=== PATIENT | male | born 1955 | race Caucasian/White ===

== ENCOUNTER 2024-03-03 20:05 | Emergency (ER) | payer MEDICARE, SELFPAY ==
[2024-03-03 20:31] VITALS: BP 149/85; PULSE 66; RESP 18; TEMP 36.9; O2SAT 99; BMI 22.6
--- NOTE | 2024-03-03 20:31 | ED.GENADULT ---
HPI - General Adult General Chief complaint: Nausea/Vomiting/Diarrhea Stated complaint: liver prob, threw up, seen by [facility] recently Time Seen by Provider: 03/04/24 00:43 Source: patient and family Mode of arrival: ambulatory Limitations: no limitations History of Present Illness ED Provider: Dr. Devlin HPI narrative: patient with a long history of chrohns with bowel resection, states that 4 weeks ago he ate boars head and since then he has had diarrhea and nausea. He has been on 1 week of augmentin that was stopped 10 days ago but he is still not feeling well. Patient comes in tonight because he is lightheaded and had some nausea Onset (ago): week(s) Related Data Allergies Allergy/AdvReac Type Severity Reaction Status Date / Time azithromycin Allergy Unknown Verified 03/03/24 20:31 Review of Systems Review of Systems: Yes all other systems are reviewed and are negative Neurologic: Denies Sensory deficit (Neuro) [facility] Social History Social History Do you have a plan to hurt others: No Plan Physical Exam ED Vital Signs: Vital Signs - 24 hr 03/03/24 20:31 03/04/24 01:04 Temperature 98.4 F 98 F Pulse Rate 66 67 Respiratory Rate 18 16 Blood Pressure 149/85 H 168/76 H Pulse Oximetry 99 98 Oxygen Delivery Method Room Air Room Air BMI result Body Mass Index 22.6 Const Other: Male with pallor Nutritional Appearance: average body habitus Orientation/consciousness: oriented to person and patient oriented x3 Limitations: no limitations HENMT Head: Yes normal to inspection Ears: external ears normal General nose exam: Normal external nose present Mouth: Normal oral and palatal mucosa present and oropharynx normal Throat: Yes posterior oropharynx normal Eyes General: appearance normal, both eyes and all related structures Neck Neck: Yes normal visual inspection Chest Chest palpation & inspection: normal inspection of the chest Resp Auscultation: clear to auscultation bilaterally Cardio Jugular venous distension: no JVD Rate: regular rate Rhythm: regular rhythm Heart sounds: S1 normal heart sound present and S2 normal heart sound present GI Inspection: Yes normal to inspection Palpation (GI): Soft to palpation, nontender and No hepatosplenomegaly present Auscultation: normal bowel sounds General: Yes no CVA tenderness Back/Spine/Pelvis Back: no CVA tenderness Skin General skin exam: no rashes or lesions noted Neuro General: oriented to person and patient oriented x3 Cranial nerves: Yes CN's II-XII intact bilaterally Motor exam (neuro): 5/5 motor strength present throughout Sensory Exam: No Sensory deficit (Neuro) Extrem General: Yes normal to inspection Psych Appearance: grossly normal Course Course Course Narrative: This is a Rapid Medical Exam performed in triage by Radha Patel PA-C. Full HPI, ROS and PE to be performed by primary ED provider. 68 year-old M w/ PMHx Chron's dz, ?Listeria tx with Augmentin by Richie, presenting to the ED c/o abdominal pain, N/V, chronic diarrhea. denies bloody stools. denies travel, fever, urinary sx PE: pale, +mild scleral icterus, abdomen soft & nontender Plan: labs, UA Reevaluation(s) Reevaluation #1: Patient with normal labs, no liver failure soft abdomen. He was satisfied that he does not need a further work up and is satisfied that his labs are normal Time: 01:12 Medical Decision Making Differential Diagnosis Differential Diagnoses: The differential diagnosis associated with the presentation includes (enteritis, chrohns disease, GI bleed, dehydration, renal failure) Admission/Observation Consideration of admission/observation: Escalation of care including admission/observation considered (upon arrival patient was considered for admission) Lab Data 03/03/24 20:43 03/03/24 20:43 Labs: Lab Results 03/03/24 Range/Units 20:43 WBC 10.1 (4.8-10.8) X10*3/uL RBC 4.95 (4.60-5.80) X10*6/uL Hgb 14.3 (14.0-18.0) g/dl Hct 39.9 L (42.0-52.0) % MCV 80.6 (80.0-98.0) fL MCH 28.9 (27.0-33.0) pg MCHC 35.8 (31.0-36.0) g/dl RDW 13.3 (11.0-16.0) % Plt Count 230 (160-400) X10*3/uL MPV 9.7 (9.4-12.4) fL Immature Gran % (Auto) 0.5 H (0.0-0.4) % Neut % (Auto) 75.4 H (45-73) % Lymph % (Auto) 12.9 L (20-40) % Lamoure % (Auto) 9.3 (2-11) % Eos % (Auto) 1.2 (0-4) % Baso % (Auto) 0.7 (0-2) % Lymph # (Auto) 1.3 (1.2-4.9) X10*3/uL [place] # (Auto) 0.9 (0.1-1.2) X10*3/uL Eos # (Auto) 0.1 (0.0-0.4) X10*3/uL Baso # (Auto) 0.1 (0.0-0.2) X10*3/uL Abs Immat Gran (auto) 0.05 H (0.00-0.03) X10*3/uL Absolute Neuts (auto) 7.6 (2.0-8.3) x10*3/uL Absolute Nucleated RBC 0.000 (0.0-0.012) X10*3/uL Nucleated RBC % (auto) 0.0 (0.0-0.2) /100WBC PT 11.6 (11.1-13.3) SEC INR 1.0 (0.9-1.1) Sodium 140 (135-145) mmol/L Potassium 3.3 (3.3-5.1) mmol/L Chloride 108 (96-108) mmol/L Carbon Dioxide 22 (22-29) mmol/L Anion Gap 13 (12-20) BUN 15 (9-16) mg/dL Creatinine 1.25 (0.5-1.4) mg/dL Estim Creat Clear Calc 56.2 Estimated GFR 58 Random Glucose 113 (60-115) mg/dL Calcium 9.6 (8.4-10.2) mg/dL Magnesium 1.8 (1.6-2.6) mg/dL Total Bilirubin 0.8 (0.0-1.0) mg/dL Direct Bilirubin 0.3 (0.0-0.5) mg/dL AST 35 (5-37) U/L ALT 68 H (0-40) U/L Alkaline Phosphatase 102 (39-117) U/L Total Protein 6.8 (6.5-8.0) g/dL Albumin 4.3 (3.5-5.0) g/dL Lipase 33 (8-78) U/L Ethyl Alcohol < 10 mg/dL Independent Interpretation I performed an independent interpretation of an: EKG (sinus [address] or twave changes) Independent Historian Clinical information obtained from an independent historian. History obtained from or confirmed by: Spouse Prescription Management I considered prescription management with: Antibiotic (no evidence of continued bacterial infection) Chronic Conditions Patient?s care impacted by: Other (Crohn's disease) Discharge Plan Discharge Clinical Impression: Crohn's disease Patient Disposition: Home, Self-Care Instructions: Crohn Disease (ED) Referrals: Physician,Unknown J [Primary Care Provider] - 5 days
--- NOTE | 2024-03-03 20:39 | ECG_ITS ---
Test Reason : nausea Blood Pressure : / mmHG Vent. Rate : 059 BPM Atrial Rate : 059 BPM P-R Int : 140 ms QRS Dur : 088 ms QT Int : 420 ms P-R-T Axes : 072 -21 063 degrees QTc Int : 415 ms Sinus bradycardia Otherwise normal ECG No previous ECGs available Referred By: Radha Patel Electronically Signed By:MARLA RATLIFF MD
[2024-03-03 20:49] LABS: Basophils Absolute Auto 0.1 X10*3/uL (0.0-0.2); Basophils Percent Auto 0.7 % (0-2); Eosinophils Absolute Auto 0.1 X10*3/uL (0.0-0.4); Eosinophils Percent Auto 1.2 % (0-4); Hematocrit 39.9 % (42.0-52.0); Hemoglobin 14.3 g/dl (14.0-18.0); Imm Gran Abs Auto 0.05 X10*3/uL (0.00-0.03); Imm Gran Pct Auto 0.5 % (0.0-0.4); Lymphocytes Absolute Auto 1.3 X10*3/uL (1.2-4.9); Lymphocytes Percent Auto 12.9 % (20-40); MANUAL DIFF FLAG NO; Mean Corpuscular HGB Conc 35.8 g/dl (31.0-36.0); Mean Corpuscular Hemoglobin 28.9 pg (27.0-33.0); Mean Corpuscular Volume 80.6 fL (80.0-98.0); Mean Platelet Volume 9.7 fL (9.4-12.4); Monocytes Absolute Auto 0.9 X10*3/uL (0.1-1.2); Monocytes Percent Auto 9.3 % (2-11); Neutrophils Absolute Auto 7.6 x10*3/uL (2.0-8.3); Neutrophils Percent Auto 75.4 % (45-73); Platelet Count 230 X10*3/uL (160-400); Red Blood Count 4.95 X10*6/uL (4.60-5.80); Red Cell Distribution Width 13.3 % (11.0-16.0); White Blood Count 10.1 X10*3/uL (4.8-10.8)
[2024-03-03 20:58] LABS: Prothrombin Time 11.6 SEC (11.1-13.3)
[2024-03-03 21:03] LABS: Alanine Aminotransferase 68 U/L (0-40); Albumin Level 4.3 g/dL (3.5-5.0); Alkaline Phosphatase 102 U/L (39-117); Anion Gap 13 (12-20); Aspartate Amino Transferase 35 U/L (5-37); Bilirubin Direct 0.3 mg/dL (0.0-0.5); Bilirubin Total 0.8 mg/dL (0.0-1.0); Blood Urea Nitrogen 15 mg/dL (9-16); Calcium 9.6 mg/dL (8.4-10.2); Carbon Dioxide 22 mmol/L (22-29); Chloride 108 mmol/L (96-108); Creatinine Clr Calc Pharmacy 56.2; Estimated Glomerular Filt Rate 58; Ethanol < 10 mg/dL; Glucose Random 113 mg/dL (60-115); Lipase 33 U/L (8-78); Magnesium 1.8 mg/dL (1.6-2.6); Potassium 3.3 mmol/L (3.3-5.1); Sodium 140 mmol/L (135-145); Total Protein 6.8 g/dL (6.5-8.0)
[2024-03-04 01:04] VITALS: BP 168/76; PULSE 67; RESP 16; TEMP 36.6; O2SAT 98
--- OUTSIDE RECORDS SUMMARY | 2024-03-04 01:24 | XMS_ITS ---
[facility] Address [address] [place] [address] Care Team Providers Care Dental Financial Coordinator Name Role Phone Art Malik MD Primary Care Provider Unav Gilberto Reynoso Unavailable [phone] ALLERGIES Allergen (clinical drug ingredient) Drug/Non Drug Allergy documented on EMR Reaction Allergy Type Onset Date Status azithromycin Azithromycin Unknown Drug Allergy A ctive Penicillin pt unsure Drug Allergy Active REASON FOR VISIT Last PCP visit- 01/2024 MEDICATIONS Medication SIG (Take, Route, Frequency, Duration) Notes Start Date End Date Status Finasteride Active Pentasa Active Esomeprazole Magnesium 20 MG 1 tablet 1 hour before a meal Orally Once a day for 30 day(s) Active SUMAtriptan Succinate 50 MG 1 tablet at least 2 hours between doses as needed Orally Twice a day Active Tamsulosin HCl Activ e Travoprost Active Ciclopirox Olamine 0.77 % 1 application to affected area Externally Twice a day to effected areas on feet for 30 days Active Timolol Maleate Acti ve Tylenol with Codeine #3 Active Wellbutrin XL 150 MG 1 tablet in the mor lamonte Orally Once a day Active Travatan Z 0.004 % 1 drop into affected eye in the evening Ophthalmic Once a day Not-Taking Jublia 10 % as directed External ly Daily for 30 days 02/28/2023 Not-Taking Vitamin D3 Active Ciclopirox Olamine 0.77 % 1 application to affected area Externally Twice a day to effected areas on feet for 30 days 01/25/2022 Not-Taking Ultravate 0.05 % 1 application a thin film to affected area Externally Twice a day for 30 days 01/25/2022 Not-Taking Vitamin B 12 Active Vitamin B Complex Ac tive SOCIAL HISTORY Tobacco Use: Social History Observation Description Date Details (start date - stop date) Former Smoker NA - NA Sex Assigned At : Social History Observation Description Sex Assigned At Unknown Tobacco Use/Smoking Question Answer Notes Are you a: former smoker Additional Findings: Tobacco Non-User Current no n-smoker Alcohol Screen Question Answer Notes Did you have a drink contain ing alcohol in the past year? Yes How often did you have a dri nk containing alcohol in the past year? Monthly or less (1 point) Points 1 Interpretation Negative Tobacco use other than smoking: Question Answer Notes Are you an other tobacco user? No VITAL SIGNS Height 5ft 9in in 02/27/2024 Weight 155 lbs 02/27/2024 BMI 22.89 kg/m2 02/27/2024 Encounters Encounter Location Date Provider Diagnosis [facility] [address] [address] 02/27/2024 Gilberto Valero Plantar fascial fibromatosis M72.2 ; Pain in left foot M79.672 ; Pain in right foot M79.671 ; Neuralgia and neuritis, unspecified M79.2 ; Metatarsalgia, left foot M77.42 ; Metatarsalgia, right foot M77.41 ; Ganglion, left ankle and foot M67.472 and Tinea unguium B35.1 ASSESSMENTS Encounter Date Diagnosis Assessment Notes Treatment Notes Treatment Clinical Notes 02/27/2024 Plantar fascial fibromatosis (ICD-10 - M72.2) 02/27/2024 Pain in left foot (ICD-10 - M79.672) 02/27/2024 Pain in right foot (ICD-10 - M79.671) 02/27/2024 Neuralgia and neuritis, unspecified (ICD-10 - M79.2) 02/27/2024 Metatarsalgia, left foot (ICD-10 - M77.42) 02/27/2024 Metatarsalgia, right foot (ICD-10 - M77.41) 02/27/2024 Ganglion, left ankle and foot (ICD-10 - M67.472) 02/27/2024 Tinea unguium (ICD-10 - B35.1) PLAN OF TREATMENT Next Appt Details Follow Up: 6 Months, Reason: Provider Name:Kylie reyes, 08/31/2024 08:30:00 AM, [address] , [address], [place], [address], Progress Notes * Examination Category Sub-Category Detail Notes Heel Pain INSPECTION REVEALS: Pain on palp ation to Posterior Superior-medial Aspect Calcaneus, LEFT Neurological SENSORY: Neurological exa m demonstrates pop postero-medial left heel BABINSKI REFLEX: Absent, B/L TINEL'S COMPRESSION: Negative tarsal mahesh ivon, shelia pedis, and medial calcaneal nerves, B/L Dermatologic SKIN FINDINGS: Skin shows sign( s) of, cyst(s) medial left heel with pop, Skin shows sign(s) of, pruritus, erythema dorsum barbi ff Orthopedic GAIT ABNORMALITY: pronated, abdu cted, B/L MUSCLE STRENGTH: 5/5 all groups in a symmetrical fashion B/L General Examination GENERAL APPEARANCE: pleasant , alert, well nourished, well developed, well hydrated, with good attention to hygene/body habitus, and in no acute distress ORIENTED: person,place, and ti me Vascular DP PULSES: 2/4, B/L PT PULSES: 1/4, B/L CAPILLARY FILL TIME: 3 secs. per digit, B/L SKIN TEMPERTURE GRADIENT OF THE LOWER EXTERMITIES: warm to cool, proximal to distal, B/L HAIR GROWTH/TEXTURE/ELASTICITY/TURGOR: n ormal, B/L EDEMA: no edema Nails NAILS are: Elongated, overg rown, dystrophic, lytic, greater than 3mm thick, discolored and friable with crumbly malodorous subungual debris, TA, proximal clearing of nail __50__ % History and Physical Notes * HPI (History of Present Illness) Category Sub-Category Detail Notes Heel pain Duration: several years Nature: aching Location: barbi ff Onset/Cause: unknown Aggravated: worse at end of the day Course: unresolved Treatments: Pre-cee innersoles Toe pain Nature: numbness Location: 2-5 B/L feet--right is worse Duration: several years Treatments: prefab orthoses have not helped Skin problems Nature: discolored Location: Left , 1st Duration: several years Onset/Cause: unknown Course: unresolved Treatments: Topical antifungal
--- OUTSIDE RECORDS SUMMARY | 2024-03-04 01:24 | XMS_ITS ---
Author Organization [facility] Address [address] [place] [address] Care Team Providers Care Stone Hand Name Role Phone Art Malik MD Primary Care Provider Unav ailable Gilberto Valero Unavailable [phone] REASON FOR VISIT NS Encounters Encounter Location Date Provider Diagnosis [facility] [address] [place] [address] 08/29/2023 Gilberto Valero PLAN OF TREATMENT Next Appt Details Provider Name:Kylie reyes, 08/31/2024 08:30:00 AM, [address] [facility], [place] [address], [place], [address],
--- OUTSIDE RECORDS SUMMARY | 2024-03-04 01:24 | XMS_ITS | Patient Health Record ---
Author Organization [facility] Address [address] [place] [address] Care Team Providers Care Chef Name Role Phone Art Malik MD Primary Care Provider Unav carlitos Valero Gilberto Unavailable [phone] ALLERGIES Allergen (clinical drug ingredient) Drug/Non Drug Allergy documented on EMR Reaction Allergy Type Onset Date Status azithromycin Azithromycin Unknown Drug Allergy A ctive Penicillin pt unsure Drug Allergy Active REASON FOR REFERRAL No Information MEDICATIONS Medication SIG (Take, Route, Frequency, Duration) Notes Start Date End Date Status Travoprost Active Travatan Z 0.004 % 1 drop into affected eye in the evening Ophthalmic Once a day Not-Taking Ciclopirox Olamine 0.77 % 1 application to affected area Externally Twice a day to effected areas on feet for 30 days Active Jublia 10 % as directed External ly Daily for 30 days 02/28/2023 Not-Taking Vitamin B 12 Active Timolol Maleate Acti ve Vitamin D3 Active Finasteride Active Pentasa Active Tylenol with Codeine #3 Active Ciclopirox Olamine 0.77 % 1 application to affected area Externally Twice a day to effected areas on feet for 30 days 01/25/2022 Not-Taking Esomeprazole Magnesium 20 MG 1 tablet 1 hour before a meal Orally Once a day for 30 day(s) Active Ultravate 0.05 % 1 application a thin film to affected area Externally Twice a day for 30 days 01/25/2022 Not-Taking Vitamin B Complex Ac tive Wellbutrin XL 150 MG 1 tablet in the mor lamonte Orally Once a day Active SUMAtriptan Succinate 50 MG 1 tablet at least 2 hours between doses as needed Orally Twice a day Active Tamsulosin HCl Activ e SOCIAL HISTORY Tobacco Use: Social History Observation [...] 02/27/2024 Encounters Encounter Location Date Provider Diagnosis [address] [address] 08/29/2023 Gilberto Valero Plantar fascial fibromatosis M72.2 ; Pain in left foot M79.672 ; Pain in right foot M79.671 ; Neuralgia and neuritis, unspecified M79.2 ; Metatarsalgia, left foot M77.42 ; Metatarsalgia, right foot M77.41 ; Ganglion, left ankle and foot M67.472 and Tinea unguium B35.[address] [facility] [address] 08/29/[address] [address] [facility]29[facility] [facility] [address] 02/27/2024 Gilberto Valero Plantar fascial fibromatosis M72.2 ; Pain in left foot M79.672 ; Pain in right foot M79.671 ; Neuralgia and neuritis, unspecified M79.2 ; Metatarsalgia, left foot M77.42 ; Metatarsalgia, right foot M77.41 ; Ganglion, left ankle and foot M67.472 and Tinea unguium B35.1 ASSESSMENTS Encounter Date Diagnosis Assessment Notes Treatment Notes Treatment Clinical Notes 08/29/2023 Plantar fascial fibromatosis (ICD-10 - M72.2) 02/27/2024 Plantar fascial fibromatosis (ICD-10 - M72.2) 02/27/2024 Pain in left foot (ICD-10 - M79.672) 08/29/2023 Pain in left foot (ICD-10 - M79.672) 02/27/2024 Pain in right foot (ICD-10 - M79.671) 02/27/2024 Neuralgia and neuritis, unspecified (ICD-10 - M79.2) 08/29/2023 Pain in right foot (ICD-10 - M79.671) 08/29/2023 Neuralgia and neuritis, unspecified (ICD-10 - M79.2) 02/27/2024 Metatarsalgia, left foot (ICD-10 - M77.42) 08/29/2023 Metatarsalgia, left foot (ICD-10 - M77.42) 02/27/2024 Metatarsalgia, right foot (ICD-10 - M77.41) 02/27/2024 Ganglion, left ankle and foot (ICD-10 - M67.472) 08/29/2023 Metatarsalgia, right foot (ICD-10 - M77.41) 08/29/2023 Ganglion, left ankle and foot (ICD-10 - M67.472) 02/27/2024 Tinea unguium (ICD-10 - B35.1) 08/29/2023 Tinea unguium (ICD-10 - B35.1) PLAN OF TREATMENT Pending Test Test Name Order Date X ray : Foot, left 3V 06/29/2021 X ray : Foot, right 3V 06/29/2021 Next Appt Details Provider Name:Kylie reyes, 08/31/2024 08:30:00 AM, [address] [facility], [facility] [address], [place], [address], Insurance Providers Payer Name Payer Address Payer Phone Subscriber Number Group Number Insured Name Patient Relationship to Insured Coverage Start Date Coverage End Date Medicare [employer] [address] [place] [address] [phone] [id number] Fidel Mcneil Self - patient is the insured 2 [facility] [address] [place] [address] [id number] Fidel Mcneil Self - patient is the insured MEDICAL (GENERAL) HISTORY Medical History History ICD Code Crohns disease Transfusions Surgical History Surgery Date(Month/Year) appendectomy 30+ years ago bowel resection 30+ years ago Hospitalization History Reason Date(Month/Year) ER- dehydrated, nausea, possible listeri a from deli meat 02/15/24 [facility]- low magnesium 11/2021
--- OUTSIDE RECORDS SUMMARY | 2024-03-04 01:24 | XMS_ITS ---
Author Organization [facility] Address [address] [place] [address] Care Team Providers Care Snow Blower Name Role Phone Art Malik MD Primary Care Provider Unav ailGilberto Hicks Unavailable [phone] REASON FOR VISIT Pt bought Comfort Plus ot's 9-9.5 Mens Encounters Encounter Location Date Provider Diagnosis [facility] [address] [place] [address] 08/29/2023 Gilberto Valero PLAN OF TREATMENT Next Appt Details Provider Name:Kylie reyes, 08/31/2024 08:30:00 AM, [address] [facility], [address], [place], [address],
--- OUTSIDE RECORDS SUMMARY | 2024-03-04 01:24 | XMS_ITS | Continuity of Care Document ---
Author Organization [facility] ter Address [address] [place] [address] Care Team Providers Care Baker Test Name Role Phone King PIERRE, Art Bernal Primary Care Physician Encounter [facility] Date(s): 08/12/19 - 08/19/[address] [address]- [facility] Attending Physician: Humberto PIERRE, Dipak Montano
[2024-03-04 01:34] VITALS: BP 168/76; PULSE 67; RESP 16; TEMP 36.6; O2SAT 98
[2024-03-04 08:05] LABS: HBc Num1 0.16 S/CO (0.00-0.79); HBsAGNum1 0.25 S/CO (0.00-0.99); Hepatitis A Antibody IgM 0.14 Index (0-0.79); Hepatitis B Core Antibody Nonreactive (Nonreactive); Hepatitis B Surface Antigen Negative (Negative); ~HepC Num1 0.12 S/CO (0.00-0.79); ~Hepatitis A Antibody IgM Nonreactive (Nonreactive); ~Hepatitis B Surface Antibody REACTIVE (Nonreactive); ~Hepatitis C Antibody Nonreactive (Nonreactive)
== END 2024-03-04 01:35 | disposition home or self-care (01) ==
PROVIDERS: Physician Assistant; Emergency Provider Emergency Medicine
DX: K50.90 Crohn's disease, unspecified, without complications (principal)
CPT/HCPCS: 36415; 80048; 80076; 80307; 83690; 83735; 85025; 85610; 86704; 86706; 86709; 86803; 87340; 93005; 99283; 99284

== ENCOUNTER → 2024-03-03 20:39 | Outpatient (BNV) | payer MEDICARE, SELFPAY | PROVIDERS: Emergency Provider Emergency Medicine; Visit Provider Internal Medicine Cardiovascular Disease | DX: R11.0 Nausea (principal) | CPT/HCPCS: 93010 ==